=== PATIENT | male | born 1980 | race Two or more races ===

== ENCOUNTER 2022-01-23 10:37 | Emergency (ER) | payer BC, OTHER ==
[~2022-01-23] VITALS: Ht 175.3 cm; Wt 113.4 kg
[2022-01-23 10:43] VITALS: BP 153/91
--- NOTE | 2022-01-23 10:49 | NUR ---
The bibs for "Ankle Pain on/off x1mo. Rates pain 7/10. Will continue to monitor the patient.
--- NOTE | 2022-01-23 14:30 | NUR ---
Patient discharged to home in stable condition. Written and verbal after care instructions given. Patient verbalizes understanding of instruction.
== END 2022-01-23 15:47 | disposition home or self-care (01) ==
LOC: ER 10:57
DX: S93.402A Sprain of unspecified ligament of left ankle, initial encounter (principal); X58.XXXA Exposure to other specified factors, initial encounter; Y93.89 Activity, other specified; Y92.89 Other specified places as the place of occurrence of the external cause; Y99.8 Other external cause status
CPT/HCPCS: 73610-TC